=== PATIENT | female | born 1985 | race Caucasian/White ===

== ENCOUNTER 2017-01-27 21:46 | Inpatient (IN) | payer MEDICAID ==
[~2017-01-27] VITALS: Ht 165.1 cm; Wt 60.8 kg
[2017-01-28] MEDS ORDERED: SODIUM CHLORIDE 0.9% 1,000 ML IV ONE (00:03)
[2017-01-28] MEDS ORDERED: KETOROLAC 30MG/ML VIAL IV ONE (00:15)
[2017-01-28] MEDS ORDERED: METOCLOPRAMIDE HCL 10MG/2ML VIAL IV ONE (00:15)
[2017-01-28 00:22] LABS: HEMATOCRIT. 29.9 % (36.0-48.0); HEMOGLOBIN. 10.3 g/dL (12.0-16.0); MEAN CORPUSCULAR HEMOGLOBIN 26.6 pg (28.0-32.0); MEAN CORPUSCULAR VOLUME 77.1 fL (81.0-99.0); MEAN PLATELET VOLUME 8.7 fl (7.4-10.4); PLATELET 244 x1000/uL (130-400); RED BLOOD CELL COUNT 3.88 mill/uL (4.2-5.4); RED CELL DISTRIBUTION WIDTH 12.9 % (11.6-14.6)
[2017-01-28 00:40] LABS: BG BASE EXCESS -1.5 mmol/L (-2.0-2.0); BG CARBOXYHEMOGLOBIN 0.5 % (0.5-1.5); BG DEOXYHEMOGLOBIN 4.6 % (0.0-5.0); BG FRACTION INSPIRED OXYGEN 21; BG HCO3 ACT 21.5 mmol/L (22.0-26.0); BG METHEMOGLOBIN 0.3 % (0.0-1.5); BG OXYGEN SATURATION 95.4 % (92.0-98.5); BG OXYHEMOGLOBIN 94.6 % (94.0-97.0); BG PCO2 30.7 mmHg (35.0-45.0); BG PH 7.464 (7.350-7.450); BG SAMPLE SITE LEFT BRACHIAL; BG TOTAL HEMOGLOBIN 10.9 g/dL (12.0-18.0); BG VENT MODE ROOM AIR
[2017-01-28 00:41] LABS: CHLORIDE 95 mEq/L (98-107); PLATELET ESTIMATE NORMAL
[2017-01-28 00:51] LABS: CARBON DIOXIDE 20 mEq/L (21-32)
[2017-01-28 00:52] LABS: BETA HYDROXYBUTYRATE 3.1 mMol/L (0.0-0.3)
[2017-01-28 03:25] LABS: CLARITY URINE CLOUDY (CLEAR); COLOR URINE YELLOW (YELLOW); GLUCOSE URINE 3+ (NEGATIVE); KETONES URINE 2+ (NEGATIVE); LEUKOCYTE ESTERASE URINE TRACE (NEGATIVE); NITRITE URINE NEGATIVE (NEGATIVE); OCCULT BLOOD URINE 2+ (NEGATIVE); PH URINE 5.5 (4.5-8.0); PROTEIN URINE 3+ (NEGATIVE); SPECIFIC GRAVITY URINE 1.031 (1.005-1.030)
[2017-01-28] MEDS ORDERED: CEFTRIAXONE 1 G PREMIX 50 ML IV ONE (04:45)
[2017-01-28] MEDS ORDERED: DIPHENHYDRAMINE 50MG/ML VIAL IV PRN (07:00)
[2017-01-28] MEDS ORDERED: DEXTROSE 50% WATER 50ML SYRINGE IV PRN (07:00)
[2017-01-28] MEDS ORDERED: IPRATROPIUM/ALBUTEROL 0.5-3(2.5)MG/3ML NEB INH PRN (07:00)
[2017-01-28] MEDS ORDERED: NA PHOS,M-B/NA PHOS,DI-BA ENEMA 118ML PR PRN (07:00)
[2017-01-28] MEDS ORDERED: LORAZEPAM 2MG/ML CPJ IV PRN (07:00)
[2017-01-28] MEDS ORDERED: MAGNESIUM/ALUMINUM HYDROXIDE/SIMETHICONE 30ML UDC PO PRN (07:00)
[2017-01-28] MEDS ORDERED: ZOLPIDEM TARTRATE 5MG TABLET PO PRN (07:00)
[2017-01-28] MEDS ORDERED: GUAIFENESIN 200MG/10ML SUGAR FREE UDC PO PRN (07:00)
[2017-01-28] MEDS ORDERED: DOCUSATE SODIUM 100MG CAPSULE PO PRN (07:00)
[2017-01-28 07:43] LABS: *AMPHETAMINES SCREEN URINE NEGATIVE (NEGATIVE); *BARBITURATES SCREEN URINE NEGATIVE (NEGATIVE); *BENZODIAZEPINES SCREEN URINE NEGATIVE (NEGATIVE); *COCAINE SCREEN URINE NEGATIVE (NEGATIVE); CANNABINOID URINE SCREEN NEGATIVE (NEGATIVE); METHADONE URINE SCREEN NEGATIVE (NEGATIVE); OPIATES URINE SCREEN NEGATIVE (NEGATIVE); PHENCYCLIDINE URINE SCREEN NEGATIVE (NEGATIVE)
[2017-01-28] MEDS: INSULIN LISPRO 100 UNITS/ML SUBCUT SCH ×4 (07:59→21:00)
[2017-01-28 08:30] VITALS: BP 163/104
[2017-01-28 09:00] VITALS: BP 163/104
[2017-01-28] MEDS ORDERED: LEVOFLOXACIN 500MG PREMIX 100 ML IV SCH ×2 (09:00→09:15)
[2017-01-28] MEDS ORDERED: CEFTRIAXONE 1 G PREMIX 50 ML IV SCH (09:00)
[2017-01-28] MEDS: BLOOD SUGAR DIAGNOSTIC STRIP TEST SCH ×4 (09:40→21:00)
[2017-01-28] MEDS: PANTOPRAZOLE SODIUM 40 MG/VIAL IV SCH (09:40)
[2017-01-28] MEDS: KETOROLAC 15MG/ML VIAL IV PRN ×3 (09:41→21:55)
[2017-01-28] MEDS: ZINC SULFATE 220 MG ( 50 ) CAPSULE PO SCH (09:41)
[2017-01-28] MEDS: CLONIDINE 0.1MG TABLET PO PRN (09:41)
[2017-01-28] MEDS: ONDANSETRON HCL 4MG/2ML VIAL IV PRN ×2 (09:41→13:53)
[2017-01-28] MEDS ORDERED: INSULIN DETEMIR UD 100 UNITS/ML SYR SUBCUT SCH (10:00)
[2017-01-28 12:00] VITALS: BP 113/74
[2017-01-28] MEDS: LEVOFLOXACIN 500MG PREMIX 100 ML IV SCH (12:19)
[2017-01-28] MEDS: ACETAMINOPHEN 325MG TABLET PO PRN (13:50)
[2017-01-28] MEDS ORDERED: METF500T4 PO (15:32)
[2017-01-28] MEDS ORDERED: IRON1CAP21 PO (15:32)
[2017-01-28 16:00] VITALS: BP 121/85
[2017-01-28 20:00] VITALS: BP 128/89
[2017-01-29] VITALS: BP 120/89
[2017-01-29 04:00] VITALS: BP 154/94
[2017-01-29] MEDS: KETOROLAC 15MG/ML VIAL IV PRN ×2 (05:57→12:57)
[2017-01-29] MEDS: BLOOD SUGAR DIAGNOSTIC STRIP TEST SCH ×2 (07:20→12:30)
[2017-01-29] MEDS: INSULIN LISPRO 100 UNITS/ML SUBCUT SCH ×2 (07:50→12:40)
[2017-01-29 08:00] VITALS: BP 152/104
[2017-01-29] MEDS: ZINC SULFATE 220 MG ( 50 ) CAPSULE PO SCH ×2 (08:50→09:08)
[2017-01-29] MEDS: PANTOPRAZOLE SODIUM 40 MG/VIAL IV SCH (08:50)
[2017-01-29] MEDS: CLONIDINE 0.1MG TABLET PO PRN ×2 (08:51→09:08)
[2017-01-29] MEDS ORDERED: CEFTRIAXONE 1 G PREMIX 50 ML IV SCH (09:00)
[2017-01-29] MEDS: ONDANSETRON HCL 4MG/2ML VIAL IV PRN (09:08)
[2017-01-29] MEDS: ACETAMINOPHEN 325MG TABLET PO PRN (10:59)
[2017-01-29] MEDS ORDERED: INSULIN DETEMIR UD 100 UNITS/ML SYR SUBCUT SCH (11:00)
[2017-01-29] MEDS: LEVOFLOXACIN 500MG PREMIX 100 ML IV SCH (11:47)
[2017-01-29 12:00] VITALS: BP 119/85
[2017-01-29] MEDS ORDERED: BUTALBITAL/ACETAMINOPHEN/CAFFEINE 50/325/40MG TABLET PO PRN (12:00)
[2017-01-29 12:57] VITALS: BP 119/85
== END 2017-01-29 16:30 | disposition left against medical advice (07) | DRG 463 ==
LOC: ER 23:56 → 6EST 01-28 05:57 → EDBEDREQSVC 01-28 06:03 → EDBEDREQ 01-28 06:03 → EDBEDREQTM 01-28 06:03 → ENRESERV 01-28 06:57
PROVIDERS: ADMIT Internal Medicine; ATTEND Internal Medicine
DX: N12 Tubulo-interstitial nephritis, not specified as acute or chronic (principal); E43 Unspecified severe protein-calorie malnutrition; E11.65 Type 2 diabetes mellitus with hyperglycemia; D64.9 Anemia, unspecified; E87.1 Hypo-osmolality and hyponatremia; Z53.21 Procedure and treatment not carried out due to patient leaving prior to being seen by health care provider; Z68.22 Body mass index [BMI] 22.0-22.9, adult
CPT/HCPCS: 36415; 36600; 70450; 71010; 74176; 80053; 80061; 80305; 81001; 82010; 82375; 82805; 82962; 83036; 83605; 83690; 85025; 87040; 87077; 87086; 87186; 96361; 96374; 96375; 99291; C9113; J0696; J1815; J1885; J1956; J2405; J2765; J7030; J7040